=== PATIENT | male | born 1945 | race Caucasian/White ===

== ENCOUNTER → 2020-11-14 06:50 | Outpatient (CLI) | payer MEDICARE, OTHER, SELFPAY ==
[2020-11-14 11:47] LABS: Influenza Control Positive
[2020-11-14 22:35] LABS: SARS-CoV-2 RNA PCR Positive
== END ==
PROVIDERS: PCP Family Medicine; Visit Provider Family Medicine
DX: U07.1 COVID-19 (principal)
CPT/HCPCS: 87804; C9803; U0003; U0005